=== PATIENT | female | born 1945 | race Hispanic/Latino ===

== ENCOUNTER → 2023-10-19 | Outpatient (CLI) | payer OTHER | END | disposition home or self-care (01) | LOC: RAH 08:54 | PROVIDERS: ATTEND Internal Medicine Cardiovascular Disease | DX: R93.1 Abnormal findings on diagnostic imaging of heart and coronary circulation (principal) | CPT/HCPCS: 78452; 96374; 93017; A9500 ×2 ==

== ENCOUNTER → 2023-12-28 | Outpatient (CLI) | payer OTHER | END | disposition home or self-care (01) | LOC: RAH 14:29 | PROVIDERS: ATTEND Urology | DX: Z01.818 Encounter for other preprocedural examination (principal) | CPT/HCPCS: 71046 ==

== ENCOUNTER → 2025-05-04 | Outpatient (CLI) | payer OTHER ==
[2025-05-04 10:00] LABS: CREATININE 1.4 mg/dL (0.5-1.0); GLOMERULAR FILTR. RATE CALC 38.0 mL/min (>90); UREA NITROGEN, BLOOD 24.0 mg/dL (7-18)
[2025-05-04 10:07] LABS: GLUCOSE, URINE (UA) NEGATIVE (NEGATIVE); LEUKOCYTE ESTERASE ,URINE 250 Leu/uL (NEGATIVE); NITRATE,URINE NEGATIVE (NEGATIVE); OCCULT BLOOD,URINE NEGATIVE (NEGATIVE); SQUAMOUS EPITHELIAL CELL,UR MANY /HPF (0-2)
[2025-05-04 10:08] LABS: APPEARANCE,URINE HAZY (CLEAR)
== END | disposition home or self-care (01) ==
LOC: RAH 08:53
PROVIDERS: ATTEND Internal Medicine Gastroenterology
DX: R10.2 Pelvic and perineal pain (principal); R10.30 Lower abdominal pain, unspecified
CPT/HCPCS: 36415; 81001; 82565; 84520; 87086

== ENCOUNTER → 2025-05-07 | Outpatient (CLI) | payer OTHER ==
[~2025-05-07] MED LIST: AMLO-258 PO; ASPI-1443 PO; ATOR40TA71 PO; BUSP10TA3 PO; DONE10TA43 PO; IOHEXOL-350 75 ML VIAL IV ONE; LOSA100T59 PO; METF-444 PO; METO-391 PO; OMEP40CA21 PO; SERT-439 PO
--- NOTE | 2025-05-07 11:03 | HMCIMG ---
EXAM: CT Abdomen and Pelvis without and with IV contrast CLINICAL HISTORY: Lower abdominal pain. History of cholecystectomy, partial hysterectomy, and bladder lift. TECHNIQUE: Thin collimated axial CT images of the abdomen and pelvis were obtained with sagittal and coronal reformatted images also submitted. CT scan is done according to ALARA (As Low As Reasonably Achievable). CONTRAST: Omnipaque 350 , 75 cc. COMPARISON: None. FINDINGS: Unremarkable visualized lung parenchyma. No focal abnormality within the pancreas, spleen, or adrenals. A few target appearance lesions in both lobes of the liver, measuring up to 2.1 cm in the left lobe. A few small, simple hepatic cysts in the liver measuring up to 1.1 cm. Status post cholecystectomy. Bulky right kidney with moderate hydronephrosis and hydroureter on the right side. Narrowing of the right distal ureter in the pelvis is identified. Bilateral renal cortical cysts measuring up to 2.3 cm in the right kidney. Mild large bowel diverticulosis with no acute diverticulitis. Mild wall thickening of the rectum and sigmoid colon.d Bowel loops are normal in caliber without evidence of obstruction or ileus. The appendix is normal. Mildly distended urinary bladder with diffuse wall thickening. Status post hysterectomy. Multiple small to medium-sized nodular enhancing lesions in the pelvis measuring up to 3.4 x 3 in the right adnexa (concerning for malignancy), causing narrowing of the distal ureter. A 3.6 x 3.1 cm hypodense lesion with central calcification in the left adnexa. Atherosclerotic plaques with wall calcifications in the aorta and its branches without significant narrowing. No lymphadenopathy. No free fluid. There is no acute osseous abnormality. IMPRESSION: Multiple hepatic lesions with target appearance, suspicious for metastases. A few small hepatic cysts. Moderate right hydronephrosis and hydroureter with distal ureteral narrowing, likely due to right adnexal mass that is concerning for malignancy. Bilateral renal cortical cysts. Bilateral nonobstructive renal calculi. Multiple enhancing pelvic masses with a left adnexal lesion with central calcification. Possibilities are a residual or recurrence of mass. Mildly distended urinary bladder with diffuse wall thickening concerning cystitis. /[place]
== END | disposition home or self-care (01) ==
LOC: RAH 08:30
PROVIDERS: ATTEND Internal Medicine Gastroenterology
DX: N28.1 Cyst of kidney, acquired (principal); N20.0 Calculus of kidney; K76.89 Other specified diseases of liver; N13.4 Hydroureter; N13.30 Unspecified hydronephrosis; K57.32 Diverticulitis of large intestine without perforation or abscess without bleeding; K57.30 Diverticulosis of large intestine without perforation or abscess without bleeding; N32.89 Other specified disorders of bladder; N85.8 Other specified noninflammatory disorders of uterus; I70.0 Atherosclerosis of aorta; R19.09 Other intra-abdominal and pelvic swelling, mass and lump; R10.30 Lower abdominal pain, unspecified; R10.2 Pelvic and perineal pain; Z90.49 Acquired absence of other specified parts of digestive tract; Z90.710 Acquired absence of both cervix and uterus
CPT/HCPCS: 74178; Q9967